=== PATIENT | female | born 1970 | race Caucasian/White ===

== ENCOUNTER 2016-06-20 03:23 | Emergency (ER) | payer MEDICARE ==
--- NOTE | ~2016-06-20 | CT4 ---
[facility] Service of [facility] RADIOLOGY TEXT RESULTS PATIENT: MICHOACANO SALES LOCATION: [facility] : 70 UNIT #: [id number] AGE: [address]: Ramya Vallecillo MD SEX: F ORDER DR: [id number] [facility] [address] [place], [place] [address] [id number] MR#: [id number] Acc #: [id number] NAME: MICHOACANO SALES : 1970 SEX: F STUDY DATE/TIME: 06/20/2016 4:04 UNIT: [facility] ROOM: STUDY DESCRIPTION: CT Abd and Pelv Wo Cont Attending Physician: Ramya Vallecillo M.D. Ordering Physician: Ramya Vallecillo M.D. Primary Care Physician: Gloria Gao M.D. MEDICAL IMAGING REPORT This report is preliminary unless electronic signature is present EXAM CT abdomen and pelvis, noncontrast, 06/20/2016 HISTORY 46-year-old female in the ED complaining of 48-hour history of abdomen pain and low back pain. TECHNIQUE CT examination of the abdomen and pelvis was performed without oral or IV contrast as requested. This CT exam was performed with one or more of the following radiation dose reduction techniques: automatic exposure control, adjustment of mA and/or kV according to patient size, and iterative reconstruction. FINDINGS ABDOMEN: The kidneys, ureters and urinary bladder are normal in appearance. No visible nephrolithiasis or evidence of urinary obstruction. Cholecystectomy. No significant bile duct dilatation. The liver, pancreas and spleen are normal in size and appearance. Small bowel and colon are normal in caliber and appearance, as imaged. The appendix is normal. Moderately large volume stool throughout the colon. PELVIS FINDINGS: Hysterectomy. Bladder and rectum are negative. No inguinal hernia. Limited lung base images show evidence of probable mild to moderate diffuse interstitial fibrosis, correlate clinically. [facility] Service of [facility] RADIOLOGY TEXT RESULTS PATIENT: MICHOACANO SALES LOCATION: [facility] : 70 UNIT #: [id number] AGE: [address]: Ramya Vallecillo MD SEX: F ORDER DR: IMPRESSION 1. No acute abnormality is seen within the abdomen or pelvis. No visible nephrolithiasis or evidence of urinary obstruction. 2. Cholecystectomy. Hysterectomy. 3. Moderately large volume stool throughout the colon. 4. Lung base images showing mild to moderate diffuse interstitial pulmonary fibrosis. Dictated by... Bart Pizano M.D. THIS IS AN ELECTRONICALLY VERIFIED REPORT Bart Pizano M.D. at 06/20/2016 5:59 AM KHALIF/uri TD: 06/20/2016 05:19 JOB #: [id number] MEDICAL IMAGING REPORT Page 1 of 1 COPY
[2016-06-20 03:50] LABS: URINE SOURCE CLEAN CATCH
[2016-06-20 03:59] LABS: BASOPHIL# 0.1 X10e3 (0-0.3); BASOPHIL% 0.5 % (0-2.5); DIFF IND NO; EOSINOPHIL# 0.3 X10e3 (0-0.7); EOSINOPHIL% 2.1 % (0.0-7.0); HEMATOCRIT 38.2 % (35.0-45.0); HEMOGLOBIN 12.3 gm/dL (12.0-16.0); LYMPHOCYTE# 3.9 X10e3 (1.0-3.5); LYMPHOCYTE% 31.7 % (17.0-45.0); MEAN CELL VOLUME 93.4 FL (83-96); MEAN CORPUSCULAR HEMOGLOBIN 30.1 PG (28-34); MEAN CORPUSCULAR HGB CONC 32.2 g/dL (30-36); MONOCYTE% 8.1 % (3.0-12.0); NEUTROPHIL# 7.1 X10e3 (1.5-7.1); NEUTROPHIL% 57.6 % (40-75); PLATELET COUNT 201 X10e3 (140-420); RED BLOOD COUNT 4.09 X10e (3.90-5.30); RED CELL DISTRIBUTION WIDTH 14.5 % (11.0-15.5); WHITE BLOOD COUNT 12.4 X10e3 (4.0-10.5)
[2016-06-20 04:16] LABS: URINE APPEARANCE CLEAR; URINE BILIRUBIN NEG (NEG); URINE BLOOD 3+ (NEG); URINE GLUCOSE NEG (NEG); URINE KETONE NEG (NEG); URINE LEUKOCYTE ESTERASE TRACE (NEG); URINE NITRATE NEG (NEG); URINE PH 6.5 (5-8); URINE PROTEIN 1+ (NEG); URINE SPECIFIC GRAVITY 1.008 (1.003-1.035); URINE UROBILINOGEN 0.2 MG/DL (NEG)
[2016-06-20 04:17] LABS: URBCS1 AUWI INNUM /[HPF] (0-2); URINE BACTERIA AUWI NEG (NEGATIVE); URINE SQUAMOUS EPITHELIAL CELL NONE SEEN /[HPF]; UWBCS1 AUWI 0-2 (0-5)
[2016-06-20 04:19] LABS: CULTURE INDICATED? NO; URINE COLOR RED
[2016-06-20 04:26] LABS: ALBUMIN SERUM 3.8 g/dL (3.5-5.0); ALKALINE PHOSPHATASE 57 U/L (32-92); ALT (SGPT) 16 U/L (10-40); AST (SGOT) 23 U/L (10-42); BILIRUBIN, DIRECT <0.1 mg/dL (0.0-0.2); BILIRUBIN,INDIRECT 0.2 mg/dL (0.0-0.9); BILIRUBIN,TOTAL 0.3 mg/dL (0.2-2.0); BLOOD UREA NITROGEN 9 mg/dL (9-23); CALCIUM SERUM 8.8 mg/dL (8.4-10.2); CARBON DIOXIDE 23 mmol/L (22-31); CHLORIDE 112 mmol/L (100-111); CREATININE SERUM 0.9 mg/dL (0.6-1.4); GLOM FILT RATE Estimated 76.7 mL/min (>60); GLUCOSE FASTING 96 mg/dL (70-110); POTASSIUM 3.6 mmol/L (3.5-5.1); PROTEIN TOTAL SERUM 6.9 g/dL (6.0-8.3); SODIUM 140 mmol/L (135-145)
== END 2016-06-20 06:30 | disposition home or self-care (01) ==
LOC: CED 03:23
PROVIDERS: Emergency Medicine
DX: R31.9 Hematuria, unspecified (principal); F17.210 Nicotine dependence, cigarettes, uncomplicated; Z86.73 Personal history of transient ischemic attack (TIA), and cerebral infarction without residual deficits; Z88.8 Allergy status to other drugs, medicaments and biological substances
CPT/HCPCS: 51701; 74176; 80048; 80076; 81003; 85025; 96374; 99284; J2270

== ENCOUNTER → 2016-08-23 | Outpatient (CLI) | payer MEDICARE ==
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
--- NOTE | ~2016-08-23 | MR17 ---
[facility] A Service of [facility] RADIOLOGY TEXT RESULTS PATIENT: MICHOACANO SALES LOCATION: [facility] : 70 UNIT #: [id number] AGE: [address]: Guillermo Lewis II, MD SEX: F ORDER DR: [id number] [facility] [address] [place], [place] [address] [id number] O MR#: [id number] Acc #: [id number] NAME: MICHOACANO SALES. : 1970 SEX: F STUDY DATE/TIME: 08/23/2016 17:33 UNIT: [facility] ROOM: STUDY DESCRIPTION: MR Brain WWo Contrast Attending Physician: Guillermo Lewis II., M.D. Referring Physician: Guillermo Lewis II., M.D. Ordering Physician: Guillermo Lewis II., M.D. Primary Care Physician: Naheed Reilly M.D. MRI CENTER REPORT This report is preliminary unless electronic signature is present. EXAM Brain MR with and without contrast 08/23/2016 COMPARISON Prior MRI 01/11/2004. CLINICAL HISTORY 6-month history of memory loss, 3-year history of multiple sclerosis. PROCEDURE Brain MR with and without contrast. COMPARISON Prior brain MRI 01/11/2004. FINDINGS The moderate nonspecific white matter change, greater than expected for age and clearly worsened since the prior study. None show restricted diffusion and none show enhancement on postcontrast images. Their pattern is nonspecific but again clearly increased since the prior study. There is no overall cerebral volume loss. There is no mass or hydrocephalus or extraaxial fluid collection. Normal flow voids are seen in the cerebral vessels but there is a right maxillary air-fluid level and there is left posterior ethmoid and sphenoid sinus mucosal thickening. The extracranial structures are otherwise unremarkable. IMPRESSION 1. Nonspecific white matter change but greater than expected for age and showing progression since the prior study, non-enhancing and diffusion negative. They are certainly not incompatible with the diagnosis of multiple sclerosis though independently did not suggest that diagnosis. 2. None of these lesions show abnormal enhancement or restricted [facility] Service of [facility] RADIOLOGY TEXT RESULTS PATIENT: MICHOACANO SALES LOCATION: [facility] : 70 UNIT #: [id number] AGE: [address]: Guillermo Lewis II, MD SEX: F ORDER DR: kennedy. Exam is, otherwise, unremarkable and there is no cerebral volume loss. 3. There is sinus mucosal disease including a right maxillary air-fluid levels suggesting acute sinusitis as well as mucosal thickening in the left sphenoid chamber and posterior left ethmoids. Dictated by... Dereck French M.D. THIS IS AN ELECTRONICALLY VERIFIED REPORT Dereck French M.D. at 09/04/2016 10:39 AM ALMA/diana TD: 08/26/2016 15:41 JOB #: [id number] MRI CENTER REPORT Page 1 of 1 COPY
== END | disposition home or self-care (01) ==
LOC: CMRI 16:45
DX: R41.3 Other amnesia (principal); J32.9 Chronic sinusitis, unspecified
CPT/HCPCS: 70553; 72156; A9577